=== PATIENT | female | born 1990 | race Caucasian/White ===

== ENCOUNTER 2021-08-26 10:39 | Emergency (ER) | payer OTHER, SELFPAY ==
--- NOTE | ~2021-08-26 | XR_ITS ---
EXAMINATION: XR foot RT min 3V DATE: 08/26/2021 11:23 INDICATION: Right foot pain and swelling TECHNIQUE: Dorsoplantar, two oblique and lateral views of the right foot were obtained. COMPARISON: 04/20/2018 FINDINGS: Alignment is normal. No fracture. 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 No corti daphney erosions or periosteal reaction. Soft tissues are unremarkable. No radiopaque foreign bodies. IMPRESSION: 1. No acute osseous abnormality. Reviewed, dictated and finalized at location A.
[2021-08-26 10:53] VITALS: BP 109/84; PULSE 84; RESP 16; TEMP 36.6; O2SAT 100
--- NOTE | 2021-08-26 11:01 | ED.LOWEXIN ---
HPI - Extremity Injury (Lower) General Chief Complaint: Extremity Injury, Lower Stated Complaint: Right foot Pain Time Seen by Provider: 08/26/21 11:01 Source: patient Mode of arrival: ambulatory Limitations: no limitations History of Present Illness HPI Narrative: Chantelle Ralph is a 30 yo female with a PMH of diabetes, high cholesterol, high blood pressure, psoriasis, who [facility] with left foot pain with swelling top of the foot and tenderness that started 24 hours ago. 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 It was swollen when she took her shoe over last night and she took ibuprofen but has not improved Related Data Home Medications Medication Instructions Recorded Confirmed albuterol sulfate INHALATION 08/26/21 insulin glargine [Lantus Solostar SUBCUT 08/26/21 U-100 Insulin] liraglutide [Victoza 3-Jhonny] mg SUBCUT 08/26/21 losartan 08/26/21 metformin mg PO 08/26/21 rosuvastatin mg 08/26/21 Allergies Allergy/AdvReac Type Severity Reaction Status Date / Time No Known Allergies Allergy Verified 08/26/21 11:05 Review of Systems Review of Systems: CONSTITUTIONAL: Denies fever, chills, sweats. EYES: Denies visual changes, redness, discharge. ENT: Denies rhinorrhea, congestion, sore throat, otalgia. CARDIOVASCULAR: Denies chest pain, palpitations, edema. RESPIRATORY: Denies dyspnea, wheezing, cough GASTROINTESTINAL: Denies abdominal pain, nausea, vomiting, diarrhea. GENITOURINARY: Denies dysuria, hematuria, abnormal discharge SKIN: Denies rash or itching. NEUROLOGIC: Denies numbness, or focal weakness. PSYCHIATRIC: Denies anxiety or depression. Left foot pain on dorsum PMFSH Past Medical History Medical History Diabetes High blood pressure High cholesterol Psoriasis Family History Family History Father Chronic alcoholism Heart disease Other Diabetes mellitus Social History Social History (Updated 08/26/21 @ 11:05 by Mima Johnson CNP) Smoking packs per day: 1 Smoking cigarettes per day: 20.0 Smoking status: Current every day smoker Tobacco type: cigarettes Alcohol intake: current Comments At time of signature, I agree with nursing past medical, surgical, social and family history. There is no relevant family history pertinent to the presenting complaint. Exam Narrative: GENERAL: This is a well-nourished, well-developed patient, in mild distress. HEAD: normocephalic, atraumatic. EYES: Sclera clear/white. Vision is grossly intact. EARS: External ears normal,. Hearing grossly intact. NOSE: External nose normal without nasal discharge, nares without redness, no rhinorrhea. THROAT: Mucous membranes moist, NECK: Neck supple, CARDIOVASCULAR: Regular rate and rhythm without murmurs, gallops, or rubs. RESPIRATORY: Clear to auscultation. Breath sounds equal bilaterally. No wheezes, rales, or rhonchi. GASTROINTESTINAL: Abdomen soft, SKIN: warm, intact with no suspicious lesions or rash, good texture and turgor. NEURO: awake, alert, and oriented to person, place and time. There were no obvious focal neurologic abnormalities. Steady gait EXTREMITIES: Normal range of motion. Mild left foot swelling with no ecchymosis but , 2+ pedal pulse but tender when checking pulse,across the dorsum , has psoriasis BACK: Nontender without deformity Course Course Emergency Course: Patient comes here with left foot pain and mild swelling. 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
== END 2021-08-26 12:10 | disposition home or self-care (01) ==
PROVIDERS: Emergency Provider Nurse Practitioner
DX: S93.601A Unspecified sprain of right foot, initial encounter (principal); X58.XXXA Exposure to other specified factors, initial encounter; E11.9 Type 2 diabetes mellitus without complications; E78.00 Pure hypercholesterolemia, unspecified; L40.9 Psoriasis, unspecified; Z79.4 Long term (current) use of insulin; F17.210 Nicotine dependence, cigarettes, uncomplicated
CPT/HCPCS: 73630; 99213; G0463

== ENCOUNTER 2022-12-27 17:12 | Emergency (ER) | payer OTHER, SELFPAY ==
--- NOTE | ~2022-12-27 | CT_ITS ---
EXAMINATION: CT abdomen pelvis w con DATE: 12/27/2022 19:37 INDICATION: vomiting, diarrhea, TRANSVERSE UPPER abdominal pain TECHNIQUE: Computed tomography (CT) of the abdomen and pelvis was performed with 100 mL Omnipaque-350 intravenous contrast. Automated exposure control and iterative reconstruction technique were employe d. The dose-length product was 1545.95 mGy-cm. COMPARISON: None. FINDINGS: Lower thorax: Dependent right lower lobe atelectasis. Liver: Hepatomegaly Biliary/Gallbladder: Cholelithiasis. No bile duct dilation. Pancreas: No mass or duct dilation. Spleen: Normal. Adrenals:No mass. Kidneys: No mass, stone, or hydronephrosis. GI tract: No small or large bowel dilation. Normal appendix. Uniform bowel wall enhancement. Mesentery/Peritoneum: No ascites, mass, or free air. Retroperitoneum: No mass. Pelvis: Pelvic organs are within normal limits. Soft Tissues: Soft tissues and body wall unremarkable. Bones: No acute osseous finding. IMPRESSION: No acute abdominopelvic process detected. Reviewed, dictated and finalized at location K. [employer]
[2022-12-27 17:23] VITALS: BP 149/92; PULSE 125; RESP 16; TEMP 36.4; O2SAT 99
--- NOTE | 2022-12-27 17:45 | ED.NAVMDI ---
HPI - Nausea/Vomiting/Diarrhea General Chief complaint: Nausea/Vomiting/Diarrhea Stated complaint: vomiting since 0600 Time Seen by Provider: 12/27/22 17:30 History of Present Illness HPI Narrative: 32-year-old female with a history of diabetes, hypertension, hyperlipidemia reports for nausea, vomiting, diarrhea x1 day. Patient states she went to bed feeling okay last night and woke up this morning nauseous. Reports vomiting 15 times today with 7 episodes of diarrhea. Denies hematochezia, melena, hematemesis, fever, body aches, chills, headache, shortness of breath, chest pain, urinary complaints, focal numbness or weakness. She reports a cough that is at baseline for her COPD. Patient states she has not taken any of her medications in 2 years including her diabetic medications. No hx of previous abdominal surgeries. Related Data Home Medications Medication Instructions Recorded Confirmed albuterol sulfate 90 mcg/actuation inhalation 08/26/21 aerosol inhaler insulin glargine 100 unit/mL (3 subcut 08/26/21 mL) subcutaneous pen (Lantus Solostar U-100 Insulin) liraglutide 0.6 mg/0.1 mL (18 mg/3 mg subcut 08/26/21 mL) subcutaneous pen injector (Victoza 3-Jhonny) losartan 25 mg tablet 08/26/21 metformin 500 mg tablet,extended mg PO 08/26/21 release 24 hr rosuvastatin 5 mg tablet mg 08/26/21 Allergies Allergy/AdvReac Type Severity Reaction Status Date / Time No Known Allergies Allergy Verified 12/27/22 17:12 Review of Systems Review of Systems: CONSTITUTIONAL: Denies fever, chills EYES: Denies visual changes, redness, or discharge. ENT: Denies rhinorrhea, congestion, sore throat, or otalgia. CARDIOVASCULAR: Denies chest pain, palpitations, or edema. RESPIRATORY: Denies cough or dyspnea. GASTROINTESTINAL: See HPI GENITOURINARY: Denies dysuria or hematuria. SKIN: Denies rash or itching. MUSCULOSKELETAL: Denies back pain, joint pain, or myalgia. NEUROLOGIC: Denies headache, numbness, dizziness, or weakness. PSYCHIATRIC: Denies anxiety or depression. [facility] Past Medical History Medical History Diabetes High blood pressure High cholesterol Psoriasis Family History Family History Father Chronic alcoholism Heart disease Other Diabetes mellitus Social History Social History Smoking packs per day: 1 Smoking cigarettes per day: 20.0 Smoking status: Current every day smoker Tobacco type: cigarettes Alcohol intake: current Exam Narrative: GENERAL: Well-appearing, well-nourished, and in no acute distress. HEAD: Normocephalic, atraumatic. EYES: PERRLA and EOMI. ENT: Nares clear, no rhinorrhea or epistaxis. Mucous membranes moist. Oropharynx without tonsillar hypertrophy exudate or other lesions. NECK: Supple. No adenopathy or masses. CHEST: Clear to auscultation. No respiratory distress. No wheezes rales or rhonchi HEART: Tachycardic at 125bpm. regular rhythm. No murmur heard. Normal peripheral pulses. ABDOMEN: Soft, nondistended, normal active bowel sounds. Tender to left lower quadrant. No CVA tenderness. No rigidity, guarding, CVA tenderness, organomegaly. EXTREMITIES: Normal range of motion. No edema. SKIN: Warm, dry, no rash. NEURO: No focal deficits. Alert and oriented x3. PSYCH: Normal mood and affect. Course Vital Signs Vital signs: Vital Signs Temperature 97.6 F 12/27/22 17:23 Pulse Rate 125 H 12/27/22 17:23 Respiratory Rate 16 12/27/22 17:23 Blood Pressure 149/92 H 12/27/22 17:23 Pulse Oximetry 99 12/27/22 17:23 Oxygen Delivery Room Air 12/27/22 17:23 Temperature 97.6 F 12/27/22 17:23 Pulse Rate 125 H 12/27/22 17:23 Respiratory Rate 16 12/27/22 17:23 Blood Pressure 149/92 H 12/27/22 17:23 Pulse Oximetry 99 12/27/22 17:23 Oxygen Delivery Room Air
[2022-12-27] MEDS: SODIUM CHLORIDE 0.9% IV 1,000 ML 999 ML IV CONT (17:58)
[2022-12-27] MEDS: ONDANSETRON INJ 4 MG/2 ML VIAL IV PUSH (17:58)
[2022-12-27 18:35] LABS: Basophils Percent Auto 0.2 % (0.2-1.2); Eosinophils Percent Auto 0.1 % (0-4.4); Hematocrit 45.5 % (37.0-47.0); Hemoglobin 14.7 g/dL (12.0-15.0); Immature Granulocyte Absolute 0.05 K/mm3 (0.00-0.031); Immature Granulocyte Percent A 0.4 % (0-0.5); Lymphocytes Percent Auto 9.5 % (18.3-44.2); Mean Corpuscular HGB Conc 32.3 g/dl (32-36); Mean Corpuscular Hemoglobin 25.1 pg (26-34); Mean Corpuscular Volume 77.6 fl (80-100); Mean Platelet Volume 11.1 fl (7.4-10.4); Monocytes Absolute Auto 0.4 K/mm3 (0.1-0.6); Monocytes Percent Auto 3.2 % (2.6-8.5); Neutrophils Percent Auto 86.6 % (45.5-73.1); Platelet Count Result 276 k/mm3 (150-375); Red Blood Count 5.86 M/mm3 (4.2-5.4); Red Cell Distribution Width 13.1 % (11.5-14.5); White Blood Count 11.6 K/mm3 (4.5-10.0)
[2022-12-27 18:44] LABS: Alanine Aminotransferase 25 U/L (6-35); Albumin Level 3.9 g/dL (3.5-5.1); Alkaline Phosphatase 153 U/L (38-126); Anion Gap 8 mmol/L (8-16); Aspartate Amino Transferase 18 U/L (14-36); Bilirubin,Total 0.8 mg/dL (0.2-1.3); Blood Urea Nitrogen 7 mg/dL (7-17); Calcium 7.9 mg/dL (8.4-10.2); Carbon Dioxide 20 mmol/L (22-30); Chloride 102 mmol/L (98-107); Estimated CRCL calculation 151 ml/min; Estimated Glomerular Filt Rate > 60; Glucose 376 mg/dL (65-110); Lipase 23 U/L (23-300); Potassium 3.8 mmol/L (3.4-5.0); Sodium 130 mmol/L (137-145)
[2022-12-27 19:10] LABS: Influenza A QL RT-PCR Negative (Negative); Influenza B QL RT-PCR Negative (Negative); SARS-CoV-2 RNA PCR Negative
--- NOTE | 2022-12-27 19:23 | ECG_ITS ---
Measurements Intervals [place] Rate: 111 P: 33 [place]: 148 QRS: -11 QRSD: 85 T: 7 QT: 318 QTc: 433 Interpretive Statements SINUS TACHYCARDIA ABNORMAL RHYTHM ECG NO PREVIOUS ECG AVAILABLE FOR COMPARISON Electronically Signed On 12-28-2022 8:25:33 [facility] by Hui Riddle M.D.
[2022-12-27 19:38] LABS: Appearance Urine Clear (Clear); Bilirubin Urine Negative (Negative); Blood Urine Negative (Negative); Color Urine Yellow (Yellow); Glucose Urine UA 3+ mg/dL (Negative); Ketones Urine Negative (Negative); Leukocyte Esterase Ur Negative LEU/UL (Negative); Nitrate Urine Negative (Negative); Protein Urine Negative (Negative); Specific Grav Ur 1.015 (1.001-1.035); Urobilinogen Urine 0.2 mg/dL (<2.0); pH Urine 5.5 (5.0-9.0)
[2022-12-27 19:40] LABS: Magnesium 1.4 mg/dL (1.6-2.3); Phosphorus 3.2 mg/dL (2.5-4.5)
[2022-12-27 19:49] LABS: Bacteria Urine Trace /hpf; Mucus Urine Rare /lpf; Squamous Epithelial Cell Urine Few /hpf (Few); WBC Urine 0-3 /hpf
[2022-12-27 19:50] LABS: Add Urine Microscopic? YES
== END 2022-12-27 21:41 | disposition home or self-care (01) ==
PROVIDERS: Emergency Provider Physician Assistant
DX: K52.9 Noninfective gastroenteritis and colitis, unspecified (principal); Z20.822 Contact with and (suspected) exposure to COVID-19; E78.5 Hyperlipidemia, unspecified; I10 Essential (primary) hypertension; E11.9 Type 2 diabetes mellitus without complications; J44.9 Chronic obstructive pulmonary disease, unspecified; F17.210 Nicotine dependence, cigarettes, uncomplicated; Z79.84 Long term (current) use of oral hypoglycemic drugs; Z79.4 Long term (current) use of insulin; R00.0 Tachycardia, unspecified
CPT/HCPCS: 36415; 74177; 80053; 81001; 81025; 83690; 83735; 84100; 85025; 87636; 93005; 96361; 96374; 99284; J2405; J7030; Q9967

== ENCOUNTER 2023-02-05 00:44 | Day surgery (SDC) | payer OTHER, SELFPAY ==
[2023-02-04 13:52] VITALS: BMI 42.5
--- NOTE | 2023-02-04 13:56 | PC.NURSE ---
Report to the Outpatient Waiting Room, entrance under the green pavilion located off [facility], at time 0915 on date 02/05/23. Planned Procedure Time: 1115. Time changes happen often and if your time is changed the preop area will call you the afternoon before. - You and your visitor will be asked to self-screen and do not enter if you have any COVID symptoms. - Only one visitor is requested with a max of two and NO children visitors are allowed at this time. - The patient visitor may be requested to leave or wait in car when not with patient due to distancing restrictions. - A mask is optional within the hospital at this time. Patients may have clear liquids (water, carbonated beverages, clear teas, apple juice) until 3 hours prior to surgery with a maximum of 20 ounces. - No food from midnight until time of surgery Take the following medications with a SIP of water the morning of surgery: NONE DO NOT STOP ANY OF YOUR OTHER PRESCRIPTION MEDICATIONS PRIOR TO SURGERY?EXCEPT THE FOLLOWING Medications to discontinue per physician: VITAMINS Date to take last dose: NO MORE UNTIL AFTER SURGERY Please no make-up, nail serbian, hairspray, perfume, deodorant, or body powder the day of surgery. No jewelry (including any body piercings) or valuables the day of surgery, leave them at home. Please take a shower or bath the night before, or the morning of, surgery with an antibacterial soap. Wear comfortable, loose fitting clothing. - Jewelry must be removed prior to entering the operating room. Rings and piercings that are not removed may be cut off. - The hospital will not accept responsibility for valuables. - Please leave all valuables, including medications, at home the day of surgery. If you are going home after surgery, a licensed home delivery driver must drive you home. - NO public transportation without another adult if you receive anesthesia. - We recommend that an adult stay with you for 24 hours following discharge. - We also recommend that you do not drive, make important decision, drink alcoholic beverages, or take any drugs that were not prescribed by your health care provider for at least 24 hours after your discharge time. Follow any additional instructions given to you from your surgeon. If you or anyone in your household have experienced Covid symptoms in the past week, please notify your surgeon or the nurse liaison at the phone number below for possible testing. Telephone instructions given to PT - NORBERT AGUILERA and asked if any additional questions and then verbalized understanding. Patient advised to call surgeon office or pre surgery nurse liaison [phone] if any additional questions.
--- NOTE | 2023-02-05 07:53 | PM.IMHP ---
H&P: HPI History of Present Illness Date/Time: 02/05/23 07:53 Chief Complaint: missed Narrative: 32-year-old 001 who presents for suction D&C for early loss. Patient presents to the office for her dating/ viability ultrasound. Ultrasound showed intrauterine measuring 8 weeks 4 days with no cardiac activity. Patient denies any bleeding, pain, cramping. Patient elected for surgical management via suction D&C. Patient's medical history is complicated by hypertension, diabetes, obesity, hypercholesterolemia , tobacco use. Review of Systems Cardiovascular: Cardiovascular: Denies chest pain, Denies leg edema, Denies palpitations, Denies dyspnea and Denies dyspnea on exertion Respiratory: Respiratory: Denies cough, Denies dyspnea and Denies dyspnea on exertion Gastrointestinal: Gastrointestinal: Denies abdominal pain, Denies constipation, Denies diarrhea, Denies nausea and Denies vomiting Genitourinary: Genitourinary: Denies hematuria, Denies urinary frequency, Denies dysuria, Denies pelvic pain, Denies urinary incontinence and Denies vaginal discharge Neurologic: Reports system reviewed and no additional complaints, except as documented Psychiatric: Psychiatric: Reports no additional psychiatric complaints Endocrine: Endocrine: Denies palpitations PMFSH Past Medical History Medical History (Updated 02/05/23 @ 07:54 by Armando Geronimo MD) Diabetes High blood pressure High cholesterol Psoriasis Suppression of menses Surgical History Surgical History (Updated 01/26/23 @ 14:01 by Ute Salguero CMA) H/O wisdom tooth extraction Family History Family History Father Chronic alcoholism Heart disease Other Diabetes mellitus Social History Social History (Updated 01/26/23 @ 14:02 by Ute Salguero CMA) Smoking packs per day: 1 Smoking cigarettes per day: 20.0 Years smoked: 15 Smoking pack-years: 15.00 Smoking status: Current every day smoker Tobacco type: cigarettes Alcohol intake: never Substance use: never Substance use type: does not use Living arrangements: with family Occupation/Education: occupation Gender identity (if verbalized by the patient): Female Sexual Orientation (if Verbalized by the Patient): Straight or Heterosexual Spiritual care concerns: No Meds Home Medications and Allergies Home Medications Medication Instructions Recorded Confirmed Type insulin glargine 100 unit/mL (3 15 unit subcut BID 08/26/21 02/04/23 History mL) subcutaneous pen (Lantus Solostar U-100 Insulin) vit no.95-ferrous 1 tablet PO DAILY 01/26/23 02/04/23 History fumarate 28 mg-folic acid 800 mcg tablet () cholecalciferol (vitamin D3) 125 125 mcg PO DAILY 02/04/23 02/04/23 History mcg (5,000 unit) tablet (Vitamin D3) insulin lispro 100 unit/mL 1 sliding scale dose subcut 02/04/23 02/04/23 History subcutaneous pen (Humalog KwikPen USEASDIRECTD (U-100) Insulin) Allergies Allergy/AdvReac Type Severity Reaction Status Date / Time No Known Allergies Allergy Verified 02/04/23 13:50 Exam Const: General: no acute distress Eyes: EOM: EOMs intact bilaterally Neck: Neck: supple Thyroid: thyroid normal Chest: Breast/axilla inspection: normal inspection of the breasts Breast/axilla palpation: normal palpation of the breasts, normal palpation of the axillae and no axillary lymphadenopathy Resp: Effort & Inspection: normal respiratory effort Auscultation: clear to auscultation bilaterally Cardio: Rate: regular rate Rhythm: regular rhythm GI: Inspection: non-distended GI Palp: Yes Soft to palpation, No Tenderness to palpation present (GI) and No Guarding due to palpation present (GI) Auscultation: normal bowel sounds : General: No bladder normal to palpation External Female Exam: normal external appearance Speculum Exam - V
--- NOTE | 2023-02-05 07:55 | WPDHPUPDATE1 ---
History and Physical Update Update Date/Time: 02/05/23 07:55 History and Physical has been reviewed, including an updated exam of the patient. There are NO changes in the patient's condition. Risks, benefits, and alternatives have been discussed and questions answered. Patient agrees to proceed with procedure.
[2023-02-05] MEDS: LACTATED RINGERS 1,000 ML 30 ML IV CONT (09:30)
[2023-02-05] MEDS: ACETAMINOPHEN 500 MG TABLET 1000 MG PO (09:39)
[2023-02-05 10:08] LABS: Glucose Point of Care 215 mg/dl (65-105)
[2023-02-05 10:16] LABS: Sodium 136 mmol/L (137-145)
[2023-02-05 10:20] VITALS: BP 118/75; PULSE 95; RESP 16; TEMP 36.9; O2SAT 99
--- NOTE | 2023-02-05 11:18 | WPDANESEPPF ---
Anes - Initial Pre Proc Eval Procedure: Operation Date: 02/05/23 11:15 Proposed Procedures p Suction Dilatation and Curettage - Armando Geronimo MD Date/Time: 02/05/23 11:18 Surgeon: Armando Geronimo MD Pre Op Diagnosis: missed AB Patient Data Age: 32 Gender: F Height: 1.55 m Weight: 102 kg Last Vital Signs Temp 36.9 C 02/05/23 10:20 Pulse 95 02/05/23 10:20 Resp 16 02/05/23 10:20 BP 118/75 02/05/23 10:20 Pulse Ox 99 02/05/23 10:20 O2 Del Method Room Air 02/05/23 10:20 Allergies Allergy/AdvReac Type Severity Reaction Status Date / Time No Known Allergies Allergy Verified 02/05/23 10:18 Home Medications Medication Instructions Recorded Confirmed Type insulin glargine 100 unit/mL (3 15 unit subcut BID 08/26/21 02/05/23 History mL) subcutaneous pen (Lantus Solostar U-100 Insulin) vit no.95-ferrous 1 tablet PO DAILY 01/26/23 02/05/23 History fumarate 28 mg-folic acid 800 mcg tablet () cholecalciferol (vitamin D3) 125 125 mcg PO DAILY 02/04/23 02/05/23 History mcg (5,000 unit) tablet (Vitamin D3) insulin lispro 100 unit/mL 1 sliding scale dose subcut 02/04/23 02/05/23 History subcutaneous pen (Humalog KwikPen USEASDIRECTD (U-100) Insulin) Laboratory Tests 02/05/23 02/05/23 02/05/23 09:46 09:46 10:03 Sodium 136 mmol/L L mmol/L (137-145) POC Capillary Glucose 215 mg/dl H mg/dl (65-105) Blood Type O Positive Antibody Screen Pending Screen Not Reportable Baby's Blood Type Not Reportable Baby's ANNE Not Reportable Doses of RhIg Required 0 Patient hx anesthesia problems: none Family hx anesthesia problems: none Results Review: All pre-operative results and documents have been reviewed as part of the pre-operative evaluation. [facility] Past Medical History Medical History Diabetes High blood pressure High cholesterol Psoriasis Suppression of menses Surgical History Surgical History H/O wisdom tooth extraction Family History Family History Father Chronic alcoholism Heart disease Other Diabetes mellitus Social History Social History Smoking packs per day: 1 Smoking cigarettes per day: 20.0 Years smoked: 15 Smoking pack-years: 15.00 Smoking status: Current every day smoker Tobacco type: cigarettes Alcohol intake: never Substance use: never Substance use type: does not use Living arrangements: with family Occupation/Education: occupation Gender identity (if verbalized by the patient): Female Sexual Orientation (if Verbalized by the Patient): Straight or Heterosexual Spiritual care concerns: No Anes - Eval Final PreProcedure Day of Procedure 02/05/23 11:18 Patient weight: morbidly obese Heart: regular rate and rhythm Lungs: decreased breath sounds Airway: Mallampati scale class II Neurological: alert and oriented Last oral intake: >/= 8 hours ASA classification: III Emergent: no Anesthetic plan: proceed Anesthesia type and monitoring: general GIVS and standard monitoring Results Review: All pre-operative results and documents have been reviewed as part of the pre-operative evaluation. Informed Consent: The patient's anesthetic plan and its attendant risks and benefits were discussed with the patient/family/POA. Questions were solicited and answers provided to the satisfaction of the patient/family/POA.
[2023-02-05] MEDS: KETOROLAC 15 MG/ML VIAL (*BKC) IV PUSH (11:56)
[2023-02-05] MEDS: LIDOCAINE HCL 1% LOCAL INJ 10 ML VIAL INFILTRATE (11:56)
[2023-02-05 12:01] VITALS: BP 115/73; PULSE 89; RESP 18; O2SAT 96
--- NOTE | 2023-02-05 12:01 | W.PM.PROC2 ---
Procedure Note - Detailed Date of Procedure 02/05/23 Pre-op Diagnosis missed AB Post-op Diagnosis Same Procedure Performed Suction Dilation & curettage Surgeon Armando Geronimo MD Anesthesia General Indications spontaneous missed on pelvic US Findings intrauterine products of conception Description of Procedure The patient was taken to the operating room after a missed had been noted on on transvaginal ultrasound. The risks, benefits and alternatives of the procedure were reviewed with the patient and informed consent was obtained. The patient was taken to the OR and anesthesia was noted to be adequate. The patient was placed in the dorsolithotomy position. Pelvic exam was performed with findings noted above. The patient was prepped and draped in the usual sterile fashion. Sterile speculum was placed in the vagina and the cervix was grasped with a tenaculum. The cervix was dilated further to allow for passage of a 8 mm suction curette. The 8 mm suction curette was gently advanced to the fundus, suction was activated, and the tip was rotated while being withdrawn to clear the uterus of products. This suction process was repeated 3 additional times due to the quantity of material in the uterus. The sharp curette was introduced and advanced to the fundus to remove any remaining products. The suction curette was reintroduced one final time to ensure all products had been removed. The above was performed under direct bedside US. The tenaculum was removed. Good hemostasis was noted. Instrument, sponge, and sharp counts were correct. Patient tolerated the procedure well and was taken to the recovery room in stable condition. Estimated Blood Loss 5 Drains No Packing No Pathology Yes (products of conception ) Complications No immediate complications Condition Stable Disposition PACU [facility] Billing Surgery - Charge Forward: Surgery Billing
[2023-02-05 12:30] VITALS: BP 106/62; PULSE 72
[2023-02-05 12:39] LABS: Glucose Point of Care 218 mg/dl (65-105)
[2023-02-05] MEDS: DOXYCYCLINE HYCLATE 100 MG TABLET 200 MG PO (12:44)
[2023-02-05] MEDS: oxyCODONE HCL (*CRX) 5 MG TAB IR PO (12:44)
[2023-02-05 13:00] VITALS: BP 109/67; PULSE 81
--- NOTE | 2023-02-05 13:18 | SUR.PHASEII ---
Patient is O+ blood type. No Rhogam needed.
== END 2023-02-05 13:19 | disposition home or self-care (01) ==
PROVIDERS: Anesthesiology; Visit Provider Student in an Organized Health Care Education/Training Program
PROC: (CPT 59820; principal; 2023-02-05 11:15)
DX: O02.1 Missed abortion (principal); O24.111 Pre-existing type 2 diabetes mellitus, in pregnancy, first trimester; Z3A.08 8 weeks gestation of pregnancy; O99.331 Smoking (tobacco) complicating pregnancy, first trimester; F17.210 Nicotine dependence, cigarettes, uncomplicated; Z79.4 Long term (current) use of insulin
CPT/HCPCS: 59820; 36415; 82948; 84295; 85461; 86850; 86900; 86901; 88305; A9270; J1885; J2250; J2704; J3010; J7120

== ENCOUNTER 2024-06-10 11:24 | Emergency (ER) | payer SELFPAY ==
[2024-06-10 11:50] VITALS: BP 137/78; PULSE 97; RESP 18; TEMP 36.4; O2SAT 100
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
[2024-06-10] MEDS: HYDROcodone/acetaminophen (*CRX) 5-325 MG TABLET 1 TAB PO (12:37)
[2024-06-10] MEDS: SULFAMETHOXAZOLE/TRIMETHOPRIM 800/160 MG DS TABLET 1 TAB PO (12:37)
[2024-06-10 12:46] VITALS: BP 136/80; PULSE 80; RESP 16; TEMP 36.8; O2SAT 98
== END 2024-06-10 12:48 | disposition home or self-care (01) ==
LOC: ANHED 12:36
PROVIDERS: Emergency Provider Student in an Organized Health Care Education/Training Program
DX: L02.212 Cutaneous abscess of back [any part, except buttock and flank] (principal); L03.312 Cellulitis of back [any part except buttock and flank]; I10 Essential (primary) hypertension; E11.9 Type 2 diabetes mellitus without complications; E78.00 Pure hypercholesterolemia, unspecified; L40.9 Psoriasis, unspecified; F17.210 Nicotine dependence, cigarettes, uncomplicated; Z79.899 Other long term (current) drug therapy; Z79.85 Long-term (current) use of injectable non-insulin antidiabetic drugs; Z79.84 Long term (current) use of oral hypoglycemic drugs
CPT/HCPCS: 99283; A9270